=== PATIENT | female | born 1975 | race African-American/Black ===

== ENCOUNTER 2021-08-21 10:36 | Emergency (ER) | payer MEDICAID ==
[~2021-08-21] VITALS: Ht 162.6 cm; Wt 73.0 kg
[2021-08-21] MEDS ORDERED: NEOM10DR11 EACH EAR (11:16)
[2021-08-21 11:34] VITALS: BP 140/80
== END 2021-08-21 11:35 | disposition home or self-care (01) ==
LOC: ER 10:36
DX: H60.93 Unspecified otitis externa, bilateral (principal); Z85.6 Personal history of leukemia
CPT/HCPCS: 99283

== ENCOUNTER 2021-08-23 17:04 | Emergency (ER) | payer MEDICAID ==
[~2021-08-23] VITALS: Ht 162.6 cm; Wt 75.0 kg
[~2021-08-23 17:04] MED LIST: NEOM10DR11 EACH EAR
[2021-08-23] MEDS ORDERED: AM250 MT (20:27)
[2021-08-23] MEDS ORDERED: AMOXICILLIN 500 MG CAPSULE PO NR (20:30)
[2021-08-23] MEDS ORDERED: IBUPROFEN 600MG TABLET PO NR (20:30)
[2021-08-23 21:45] VITALS: BP 150/89
== END 2021-08-23 21:45 | disposition home or self-care (01) ==
LOC: ER 17:04
DX: H66.91 Otitis media, unspecified, right ear (principal); H72.91 Unspecified perforation of tympanic membrane, right ear; Z85.6 Personal history of leukemia; Z98.890 Other specified postprocedural states
CPT/HCPCS: 99283